=== PATIENT | female | born 1945 ===

== ENCOUNTER 2022-02-24 07:02 | Observation (INO) ==
[~2022-02-24 07:02] MED LIST: Buffered Lidocaine 1% SYRIN 1 ml INTRADERM ONE; Lactated Ringers 1000 ml BAG 1,000 ML IV SCH
[2022-02-24] MEDS ORDERED: Midazolam 2 mg/2 ml VIAL 1 mg/ml 2 ml VIAL (2 mg) ONE (07:29)
[2022-02-24] MEDS ORDERED: fentaNYL 100 mcg/2 ml 50 MCG/ML VIAL ONE (07:29)
[2022-02-24] MEDS ORDERED: Phenylephrine IV 10 MG/ML 1 ml VIAL ONE (07:30)
[2022-02-24] MEDS ORDERED: Lidocaine 2% PF 5 ML VIAL ONE (07:30)
[2022-02-24] MEDS ORDERED: ceFAZolin 2 GM in NS PREMIX 2 GM/100 ML BAG IVPB ONE (07:35)
[2022-02-24] MEDS ORDERED: Vancomycin 1,000 MG VIAL ONE (07:42)
[2022-02-24] MEDS ORDERED: Lidocaine 2% w EPI 1:100,000 20 ML MDV VIAL ONE (07:49)
[2022-02-24] MEDS ORDERED: Bupivacaine 0.5% SDV PF 30ML VIAL ONE (07:49)
[2022-02-24] MEDS ORDERED: ROPIVACAINE 5 MG/ML 30 ML BTL (0.5%) ONE (08:30)
[2022-02-24] MEDS ORDERED: Ropivacaine (OR use only) 2 MG/ML 10 ML ONE (08:39)
[2022-02-24] MEDS ORDERED: Glycopyrrolate IV 0.2 MG/ML 1 ML VIAL ONE ×2 (10:05→10:07)
[2022-02-24] MEDS ORDERED: Bupivacaine 0.25% w/EPI 10 ML SDV ONE (10:22)
[2022-02-24] MEDS ORDERED: Dexamethasone IV 4 MG/ML VIAL 1 ml VIAL ONE (10:35)
[2022-02-24] MEDS ORDERED: Ondansetron 4 mg VIAL 2 MG/ML 2 ml VIAL ONE (10:35)
[2022-02-24] MEDS ORDERED: Ondansetron 4 mg VIAL 2 MG/ML 2 ml VIAL IV PRN ×2 (12:07→15:21)
[2022-02-24] MEDS ORDERED: Ondansetron ODT 4 mg TAB 4 MG TAB PO PRN ×2 (12:07→15:21)
[2022-02-24] MEDS ORDERED: Lactulose 30 ml UDC PO PRN (12:07)
[2022-02-24] MEDS ORDERED: Magnesium Hydroxide LIQ 30 ML UDC PO PRN (12:07)
[2022-02-24] MEDS: D5W 1/2 NS 1000 ml BAG 1,000 ML IV SCH (14:15)
[2022-02-24] MEDS ORDERED: Benzocaine/Menthol LOZ PO PRN (14:28)
[2022-02-24] MEDS: Morphine 2 MG/ML SYRINGE IV PRN (14:56)
[2022-02-24] MEDS: Magic MouthWash1-BEN/MAAL/LIDO 180 ML BTL SWISH SPIT SCH ×2 (15:08→21:03)
[2022-02-24] MEDS: ceFAZolin 1 GM ADVAN 1 GM in NS 0.9% 50 ML 50 ML IVPB SCH (17:24)
[2022-02-24] MEDS: Magnesium Hydroxide LIQ 30 ML UDC PO SCH (21:03)
[2022-02-25] MEDS: Morphine 2 MG/ML SYRINGE IV PRN ×2 (00:47→07:58)
[2022-02-25] MEDS: ceFAZolin 1 GM ADVAN 1 GM in NS 0.9% 50 ML 50 ML IVPB SCH ×2 (01:50→09:14)
[2022-02-25] MEDS: D5W 1/2 NS 1000 ml BAG 1,000 ML IV SCH (01:55)
[2022-02-25 05:57] LABS: Hematocrit 28 % (35-47); Hemoglobin 9.5 g/dL (12.0-16.0); Mean Platelet Volume 7.6 fL (7.4-10.4); Platelet Count 127 10^3/uL (150-450)
[2022-02-25 06:24] LABS: Calcium 8.4 mg/dL (8.6-10.3); eGFR CKD-EPI 92.3 (>60)
[2022-02-25] MEDS: Magic MouthWash1-BEN/MAAL/LIDO 180 ML BTL SWISH SPIT SCH ×3 (07:14→15:58)
[2022-02-25] MEDS: Magnesium Hydroxide LIQ 30 ML UDC PO SCH (07:59)
[2022-02-25] MEDS ORDERED: Aspirin EC 81 mg TAB.EC (enteric coated) PO SCH (09:00)
[2022-02-25] MEDS ORDERED: Mirabegron 50 mg ER TAB (NF) PO SCH (09:00)
[2022-02-25] MEDS ORDERED: Vitamin THERAPEUTIC TAB PO SCH (09:00)
[2022-02-25] MEDS ORDERED: Polyethylene Glycol 3350 17 GM PACKET PO SCH (09:00)
[2022-02-25] MEDS ORDERED: HYDROcodone/ACETAMIN 5/325 mg TAB PO PRN ×2 (12:09→12:10)
[2022-02-25] MEDS ORDERED: Lidocaine PATCH 5% PATCH TRANSDERM PRN (14:06)
[2022-02-25 15:45] VITALS: BP 102/63
== END 2022-02-25 17:25 | disposition home or self-care (01) ==
LOC: INTOOBSV 07:02 → AA 07:02 → SSU 13:15
PROVIDERS: ADMIT Orthopaedic Surgery; ATTEND Orthopaedic Surgery